=== PATIENT | female | born 1995 | race Two or more races ===

== ENCOUNTER 2019-10-22 09:22 | Emergency (ER) | payer MEDICAID ==
[~2019-10-22] VITALS: Ht 167.6 cm; Wt 102.5 kg
[2019-10-22 09:30] VITALS: BP 118/62
--- NOTE | 2019-10-22 09:36 | NUR ---
PT SEEN AND EXAMINED BY .
[2019-10-22] MEDS ORDERED: HYDROMORPHONE 1 MG/1 ML DISP.SYRIN ONE (09:46)
[2019-10-22] MEDS ORDERED: ONDANSETRON 4 MG TAB.RAPDIS ONE (09:47)
--- NOTE | 2019-10-22 09:50 | NUR ---
PT SIGNED WAIVER.
--- NOTE | 2019-10-22 09:51 | NUR ---
BEGINING DATE OF LAST MENS AT October.
--- NOTE | 2019-10-22 09:54 | NUR ---
PT IS WHEELED TO CT SCAN VIA [facility].
[2019-10-22] MEDS ORDERED: ONDANSETRON 4 MG TAB.RAPDIS SL ONE (10:00)
[2019-10-22] MEDS ORDERED: HYDROMORPHONE 1 MG/1 ML DISP.SYRIN IM ONE (10:00)
[2019-10-22] MEDS ORDERED: KETOROLAC TROMETHAMINE INJ 60 MG/2 ML VIAL IM ONE ×2 (10:00→12:00)
--- NOTE | 2019-10-22 11:17 | NUR ---
Patient discharged to home in stable condition. Written and verbal after care instructions given. Patient verbalizes understanding of instruction.
[2019-10-22] MEDS ORDERED: KETOROLAC TROMETHAMINE INJ 30 MG/ML VIAL ONE (11:40)
--- NOTE | 2019-10-22 12:31 | NUR ---
PT STILL UNABLE TO SIT/STAND, MD AWARE.
[2019-10-22] MEDS ORDERED: DIAZEPAM 5 MG/ML 2 ML DISP.SYRIN IV ONE (13:30)
[2019-10-22] MEDS ORDERED: DIAZEPAM 5 MG TABLET ONE (13:35)
[2019-10-22] MEDS ORDERED: DIAZEPAM 10 MG TABLET PO ONE (14:00)
--- NOTE | 2019-10-22 14:13 | NUR ---
Patient discharged to home in stable condition. Written and verbal after care instructions given. Patient verbalizes understanding of instruction.
== END 2019-10-22 14:13 | disposition home or self-care (01) ==
LOC: ER 09:23
DX: M54.5 Low back pain (principal)
CPT/HCPCS: 72131; 96372 ×2; 99284; J1170; J1885; Q0162